=== PATIENT | male | born 1950 | race African-American/Black ===

== ENCOUNTER 2017-01-31 20:05 | Emergency (ER) | payer OTHER ==
--- NOTE | ~2017-01-31 | CR72 ---
[facility] A Service of [facility] RADIOLOGY TEXT RESULTS PATIENT: ALIE ALBERT LOCATION: [place] : 48 UNIT #: [id number] AGE: [address]: Shahab Fontaine MD SEX: M ORDER DR: [id number] [place], [place] [address] [id number] MR#: [id number] Acc #: [id number] NAME: ALIE ALBERT : 1950 SEX: M STUDY DATE/TIME: 01/31/2017 20:15 UNIT: [facility] ROOM: STUDY DESCRIPTION: CR Chest Single View Portable Attending Physician: Shahab Fontaine M.D. Ordering Physician: Shahab Fontaine M.D. Primary Care Physician: Primary Care Physician No MEDICAL IMAGING REPORT This report is preliminary unless electronic signature is present EXAM AP portable chest DATE 01/31/2017 at 20:15 HISTORY Cough, congestion and lower extremity edema with shortness of breath for 1 year. Congestive heart failure. Hypertension. COMPARISON AP portable chest 09/12/2016 FINDINGS Stable moderate cardiac enlargement with CABG changes. Left chest wall pacemaker and leads appear stable. No visible pneumothorax. Chronic appearing coarse interstitial markings are present within both lungs, very similar to 09/12/2016. No acute osseous abnormalities. IMPRESSION 1. Stable moderate cardiac enlargement without convincing evidence of pulmonary edema. The interstitial markings appear chronic and relatively stable in comparison to the chest radiograph from 09/12/2016. 2. CABG changes. Dictated by... Anahy Yi M.D. THIS IS AN ELECTRONICALLY VERIFIED REPORT Anahy Yi M.D. at 02/01/2017 7:[address] [facility] A Service of [facility] RADIOLOGY TEXT RESULTS PATIENT: ALIE ALBERT LOCATION: [place] : [birth year] UNIT #: [id number] AGE: [address]: Shahab Fontaine MD SEX: M ORDER DR: TD: 02/01/2017 00:25 JOB #: [id number] MEDICAL IMAGING REPORT Page 1 of 1 COPY
--- NOTE | ~2017-01-31 | EKG ---
PATIENT: ALIE ALBERT UNIT #: [id number] Ventricular Rate: 63 BPM Atrial Rate: 63 BPM P-R Interval: 160 ms QRS Duration: 120 ms Q-T Interval: 402 ms QTC Calculation(Bezet): 411 ms P [place]: 58 degrees Calculated R [place]: 89 degrees Calculated T [place]: -20 degrees Diagnosis Line: Normal sinus rhythm Diagnosis Line: Non-specific intra-ventricular conduction delay Diagnosis Line: ST and T wave abnormality, consider anterolateral Diagnosis Line: ischemia Diagnosis Line: Abnormal ECG Diagnosis Line: When compared with ECG of 13-SEP-2016 06:13, Diagnosis Line: Nonspecific T wave abnormality has replaced Diagnosis Line: inverted T waves in Inferior leads Diagnosis Line: Inverted T waves have replaced nonspecific T wave Diagnosis Line: abnormality in Anterolateral leads Diagnosis Line: Confirmed by MAYCOL MENG MD ([id number]) on 02/01/2017 Diagnosis Line: 5:48:11 AM INTERPRETING MD: TAQUERIA CANDELARIA
[~2017-01-31 20:05] MED LIST: ACCUPRIL PO; ACCUPRIL40 MG PO; ALDACTONE25 MG PO; ALENDRONATE SOD70 M1 PO; AMOXICILLIN500 M1 PO; ASPIRIN PO; ASPIRIN81 M2 PO; AUGMENTIN875 MG PO; BAYER ASPIRIN325 M1 PO; CLOPIDOGREL BIS75 MG PO; COREG PO; CRESTOR PO; GABAPENTIN800 MG PO; IMDUR-ER30 M1 PO; IMDUR-ER30 M2 PO; IMDUR-ER60 M2 PO; INDOMETHACIN50 MG PO; LASIX PO; LEVOTHYROXINE75 MCG PO; METFORMIN HCL500 M1 PO; METOPROLOL SUCC25 MG PO; METOPROLOL TAR25 MG PO; NITROGLYCERIN0.4 MG SL; NORVASC PO; NORVASC10 MG PO; OMEPRAZOLE20 M1 PO; OMEPRAZOLE40 M1 PO; PLAVIX PO; POTASSIUM CHLO20 ME1 PO; PREDNISONE10 MG PO; ROBITUSSIN A-C10 ML PO; SYMBICORT INH; SYNTHROID PO; SYNTHROID25 MCG PO; TESSALON PERLE100 M1 PO; TRAZODONE HCL100 MG PO; VICODIN 5/1 TAB 5/50 PO; VITAMIN D250000 UNIT PO
[2017-01-31 20:28] LABS: URINE SOURCE CLEAN CATCH
[2017-01-31 20:56] LABS: BASOPHIL# 0.1 X10e3 (0-0.3); BASOPHIL% 2.2 % (0-2.5); EOSINOPHIL# 0.1 X10e3 (0-0.7); EOSINOPHIL% 1.9 % (0.0-7.0); HEMATOCRIT 29.2 % (38.0-50.0); LYMPHOCYTE# 1.2 X10e3 (1.0-3.5); LYMPHOCYTE% 22.1 % (17.0-45.0); MEAN CELL VOLUME 73.7 FL (83-96); MEAN CORPUSCULAR HEMOGLOBIN 22.8 PG (28-34); MEAN CORPUSCULAR HGB CONC 30.9 g/dL (30-36); MEAN PLATELET VOLUME 8.6 FL (6.5-11.5); MONOCYTE# 0.7 X10e3 (0-1.0); MONOCYTE% 13.7 % (3.0-12.0); NEUTROPHIL# 3.3 X10e3 (1.5-7.1); NEUTROPHIL% 60.1 % (40-75); PLATELET COUNT 286 X10e3 (140-420); RED BLOOD COUNT 3.97 X10e (3.90-5.60); RED CELL DISTRIBUTION WIDTH 20.1 % (11.0-15.5); WHITE BLOOD COUNT 5.5 X10e3 (4.0-10.5)
[2017-01-31 20:58] LABS: DIFF IND NO
[2017-01-31 21:06] LABS: URINE APPEARANCE CLEAR; URINE COLOR DK YELLOW; URINE LEUKOCYTE ESTERASE TRACE (NEG); URINE NITRATE NEG (NEG); URINE PROTEIN NEG (NEG); URINE SPECIFIC GRAVITY 1.012 (1.003-1.035)
[2017-01-31 21:07] LABS: URINE BILIRUBIN NEG (NEG); URINE BLOOD NEG (NEG); URINE GLUCOSE NEG (NEG); URINE KETONE NEG (NEG)
[2017-01-31 21:09] LABS: INR 1.2; PARTIAL THROMBOPLASTIN TIME 23.4 SECONDS (23.5-31.3); PROTHROMBIN TIME (PATIENT) 13.2 SECONDS (9.6-11.5)
[2017-01-31 21:09] LABS: POC - CKMB 2.2 ng/mL (0.0-7.9); POC - TROPONIN <0.05 ng/mL (<=0.05)
[2017-01-31 21:15] LABS: CULTURE INDICATED? YES; URINE BACTERIA AUWI 4+ (NEGATIVE); URINE SQUAMOUS EPITHELIAL CELL FEW /[HPF]
[2017-01-31 21:19] LABS: ALBUMIN SERUM 3.4 g/dL (3.5-5.0); BILIRUBIN, DIRECT 0.7 mg/dL (0.0-0.2); BILIRUBIN,TOTAL 1.7 mg/dL (0.2-2.0); BUN/CREATININE RATIO 18.66; CALCIUM SERUM 10.7 mg/dL (8.4-10.2); CREATININE SERUM 1.5 mg/dL (0.6-1.4); DIGOXIN (LANOXIN) 0.3 ng/ml (1.0-2.0); GLOM FILT RATE Estimated 55.1 mL/min (>60); POTASSIUM 3.2 mmol/L (3.5-5.1); PROTEIN TOTAL SERUM 7.7 g/dL (6.0-8.3)
[2017-01-31] MEDS ORDERED: BUMEX2 MG PO (21:31)
[2017-01-31] MEDS ORDERED: ALLOPURINOL300 MG PO (21:31)
[2017-01-31] MEDS ORDERED: ALBUTEROL2.5 MG/3 M INH (21:31)
[2017-01-31] MEDS ORDERED: HUMALOG KW100 UNIT/1 (21:32)
[2017-01-31] MEDS ORDERED: DIGITEK125 MC1 PO (21:32)
[2017-01-31] MEDS ORDERED: HYDRALAZINE HC100 MG PO (21:33)
[2017-01-31] MEDS ORDERED: [UNRECOGNIZED DRUG - OTHER] EXT (21:33)
[2017-01-31] MEDS ORDERED: LIDOCAINE 5% PATCH TOP (21:35)
[2017-01-31] MEDS ORDERED: NITROGLYGERIN0.4 MG SL (21:46)
[2017-01-31] MEDS ORDERED: NAPROSYN500 MG PO (21:46)
[2017-01-31] MEDS ORDERED: HYDROCODON-ACE1 EAC7 PO (21:47)
[2017-01-31] MEDS ORDERED: TAMSULOSIN HCL0.4 MG PO (21:47)
[2017-01-31] MEDS ORDERED: TRIAMCINOLONE AC1 GM (21:48)
[2017-02-01 00:46] LABS: POC - CKMB 1.9 ng/mL (0.0-7.9); POC - TROPONIN <0.05 ng/mL (<=0.05)
== END 2017-02-01 01:02 | disposition home or self-care (01) ==
LOC: CED 20:05
PROVIDERS: Emergency Medicine
DX: I11.0 Hypertensive heart disease with heart failure (principal); I50.9 Heart failure, unspecified; E11.9 Type 2 diabetes mellitus without complications; Z79.899 Other long term (current) drug therapy; Z79.84 Long term (current) use of oral hypoglycemic drugs; Z88.8 Allergy status to other drugs, medicaments and biological substances
CPT/HCPCS: 36415; 71010; 80048; 80076; 80162; 81003; 82553; 83880; 84484; 85025; 85610; 85730; 87086; 87088; 87186; 93005; 96365; 96375; 96376; 99284; J0696; J1940